=== PATIENT | female | born 1990 | race Caucasian/White ===

== ENCOUNTER 2020-02-15 15:41 | Emergency (ER) | payer OTHER, MEDICAID, SELFPAY ==
[2020-02-15 15:51] VITALS: BP 106/73; PULSE 90; RESP 18; TEMP 36.8; O2SAT 100
--- NOTE | 2020-02-15 16:00 | ED_ITS ---
HPI - Recheck/Abnormal Lab/Rx <KATIE Choudhury - Last Filed: 02/15/20 16:09> General Chief Complaint: Recheck/Abnormal Lab/Rx Stated Complaint: Psyche medication refill Time Seen by Provider: 02/15/20 15:52 Source: patient Mode of arrival: Family Vehicle Limitations: no limitations History of Present Illness HPI narrative: 29-year-old female presents to the emergency department for a refill on her medications for anxiety and depression. She states she takes Zoloft 100 mg daily. She states she is being seen at [facility] but they do not prescribe psychological medications so she is trying to find a provider who prescribes this. She has been on this for a month, denies any side effects. She does states she has missed her dosing for the past week and feels ?blah ?. She denies any suicidal, homicidal thoughts, nausea, vomiting, diarrhea, chest pain, shortness of breath, dizziness, or any other concerns. Related Data Previous Rx's Medication Instructions Recorded sertraline 100 mg PO DAILY #30 tab 02/15/20 Allergies Allergy/AdvReac Type Severity Reaction Status Date / Time No Known Drug Allergies Allergy Verified 02/15/20 15:54 Review of Systems <KATIE Choudhury - Last Filed: 02/15/20 16:09> Review of Systems Narrative: REVIEW OF SYSTEMS: GENERAL: Denies fever or chills. HENT: No head trauma, hearing loss or sore throat. EYES: No loss of vision, double vision, eye pain, or irritation. CARDIOVASCULAR: No chest pain or syncope. RESPIRATORY: No shortness of breath or cough. GASTROINTESTINAL: No nausea, vomiting, diarrhea, or constipation. GENITOURINARY: No flank pain or dysuria. MUSCULOSKELETAL: No pain, weakness, or deformities. INTEGUMENTARY: No rash, lesions, or pruritus. NEURO: No numbness, tingling, memory loss, or confusion. PSYCH: No behavior or mood changes. Patient History <KATIE Choudhury - Last Filed: 02/15/20 16:09> Medical History No significant medical problems (Acute) Social History Smoking Status: Current every day smoker Smoking Status: Current every day smoker alcohol intake frequency: 0-2 drinks per day Substance Use Type: former substance user Exam <KATIE Choudhury - Last Filed: 02/15/20 16:09> Initial Vital Signs Initial Vital Signs: Vital Signs Temperature 98.3 F 02/15/20 15:51 Pulse Rate 90 02/15/20 15:51 Respiratory Rate 18 02/15/20 15:51 Blood Pressure 106/73 02/15/20 15:51 Pulse Oximetry 100 02/15/20 15:51 PHYSICAL EXAMINATION: GENERAL: Well groomed, alert, and cooperative. Answers questions promptly and appropriately. Vital signs noted. HENT: Normocephalic, atraumatic. Ear canals patent. Oral mucosa is pink and moist. EYES: Conjunctiva pink, sclera white, no periorbital swelling. CHEST: Normal to inspection and without deformities. CARDIOVASCULAR: Regular rate. RESPIRATORY: Normal respiratory rate, trachea midline, airway patent. No stridor, nasal flaring or accessory muscle use. MUSCULOSKELETAL: Normal gait and coordination. Equal tone and mass bilaterally. EXTREMITIES: CMS intact. Moves all extremities. SKIN: Warm, dry, soft, appropriate color for ethnicity. No lesions, rashes, or wounds. NEURO: Alert and Oriented X 3. Good coordination. No ataxia, or sensory deficits, or cognitive issues. PSYCH: Appropriate affect and mood. <Benjamin Cosme MD - Last Filed: 02/15/20 19:19> Initial Vital Signs Initial Vital Signs: Vital Signs Temperature 98.3 F 02/15/20 15:51 Pulse Rate 90 02/15/20 15:51 Respiratory Rate 18 02/15/20 15:51 Blood Pressure 106/73 02/15/20 15:51 Pulse Oximetry 100 02/15/20 15:51 Course <KATIE Choudhury - Last Filed: 02/15/20 16:09> Vital Signs Vital signs: Vital Signs - 8 hr 02/15/20 15:51 02/15/20 16:35 Temperature 98.3 F Pulse Rate 90 70 Respiratory Rate 18 20 Blood Pressure 106/73 106/62 Pulse Oximetry 100 100 <Benjamin Cosme MD - Last Filed: 02/15/20 19:19> Vital Signs Vital signs: Vital Signs - 8 hr 02/15/20 15:51 02/15/20 16:35 Temperature 98.3 F Pulse Rate 90 70 Respiratory Rate 18 20 Blood Pressure 106/73 106/62 Pulse Oximetry 100 100 MDM - Recheck/Abnormal Lab/Rx <KATIE Choudhury - Last Filed: 02/15/20 16:09> Medical Records Attestation: I reviewed the patient's medical records. Lab Data Attestation: I reviewed the patient's lab results. [facility] Narrative Medical decision making narrative: 29-year-old female presents emergency department for refill of sertraline without any symptoms or psychological concerns. Patient's medication was refilled, she was encouraged to follow up with her primary care provider for ongoing treatment. She did ask for Chantix at this time, we discussed that she has been off her sertraline for the past week and that I do not advise taking both at the same time. She agreed to plan of care verbalized understanding. Return precautions given. Discharge Plan Departure Patient Disposition: Home Clinical Impression: Encounter for medication refill Discharge Date/Time: 02/15/20 16:40 Instructions: DI for Depression -- Adult, DI for Anxiety -- Adult Activity Restrictions/Additional Instructions: Thank you for entrusting me with your care today. As discussed, I have refilled your sertraline. Please follow up with your primary care provider to discuss smoking cessation as desired. Return emergency department for any new or worsening symptoms such as suicidal thoughts, homicidal thoughts, seizures, chest pain, shortness of breath, high fevers, or any other concerns. [facility] [place] Prescriptions: New sertraline 100 mg tablet 100 mg PO DAILY Qty: 30 RF: 3
[2020-02-15 16:35] VITALS: BP 106/62; PULSE 70; RESP 20; O2SAT 100
== END 2020-02-15 16:40 | disposition home or self-care (01) ==
PROVIDERS: Emergency Provider Nurse Practitioner
DX: Z76.0 Encounter for issue of repeat prescription (principal)
CPT/HCPCS: 99281